=== PATIENT | female | born 1965 | race Hispanic/Latino ===

== ENCOUNTER 2018-01-11 07:49 | Outpatient (CLI) | payer OTHER ==
--- NOTE | 2018-01-11 11:50 | NM ---
NUCLEAR MEDICINE PARATHYROID SCAN: HISTORY: A 52-year-old female with hyperparathyroidism. TECHNIQUE: A nuclear parathyroid scan with SPECT imaging was performed. Immediate and 1-hour delay images were performed. The SPECT imaging was performed on the 1-hour delay. Two-hour delay images were also per formed. FINDINGS: There is immediate uptake of the radiopharmaceutical in the thyroid gland. This partially washes out at 1 hour and completely washes out at 2 hours. No significant asymmetry is seen to suggest a parat hyroid adenoma. No retention of the radiopharmaceutical is seen to suggest a parathyroid adenoma. IMPRESSION: No evidence of parathyroid adenoma. POS: AVE
== END 2018-01-11 07:50 | disposition home or self-care (01) ==
LOC: NM 07:49
PROVIDERS: ATTEND Family Medicine
DX: E21.3 Hyperparathyroidism, unspecified (principal)
CPT/HCPCS: 78072; A9500

== ENCOUNTER 2018-09-26 08:58 | Emergency (ER) | payer OTHER | END 2018-09-26 10:20 | disposition home or self-care (01) | LOC: ERS 08:58 | DX: H53.8 Other visual disturbances (principal); E03.9 Hypothyroidism, unspecified; Z79.899 Other long term (current) drug therapy | CPT/HCPCS: 93005 ==

== ENCOUNTER 2018-10-10 08:34 | Emergency (ER) | payer OTHER ==
[2018-10-10 08:50] LABS: #Eosinphils 0.1 thou/uL (0.0-0.7); #Lymphocytes 1.6 thou/uL (1.20-3.40); #Monocytes 0.6 thou/uL (0.11-0.59); #Neutrophils 6.2 thou/uL (1.40-6.50); %Basophils 0.3 % (0.0-1.0); %Eosinophils 0.7 % (0.0-10.0); %Lymphocytes 19.2 % (21.0-51.0); %Monocytes 6.7 % (0.0-10.0); %Neutrophils 73.1 % (42.0-75.0); Hemoglobin 14.3 g/dL (12.0-16.0); Mean Corpuscular Volume 94.1 fL (78.0-98.0); Mean Platelet Volume 8.2 fL (7.4-10.4); Platelet Count 182 thou/uL (130-400); RBC Distribution Width 11.6 % (11.5-14.5); Red Blood Cell (RBC) Count 4.62 mill/uL (4.20-5.40); White Blood Cell (WBC) Count 8.5 thou/uL (4.8-10.8)
[2018-10-10 09:00] LABS: PTT 30.1 SEC (22.9-36.1); Prothrombin Time 13.2 SEC (12.0-14.7)
[2018-10-10 09:06] LABS: ALT (SGPT) 16 U/L (8-55); AST (SGOT) 18 U/L (5-34); Albumin 4.1 g/dL (3.5-5.0); Alkaline Phosphatase 68 U/L (40-150); Anion Gap 15 mmol/L (10-20); BUN (Urea Nitrogen) 16 mg/dL (7.0-18.7); Bilirubin, Total 0.8 mg/dL (0.2-1.2); CK (CPK) 75 U/L (29-168); Calc. Creatinine Clearance 0 mL/min (70-130); Calcium 9.5 mg/dL (7.8-10.44); Carbon Dioxide 20 mmol/L (22-29); Chloride 107 mmol/L (98-107); Estimated GFR-MDRD 74; Glucose 112 mg/dL (70-105); Potassium 3.9 mmol/L (3.5-5.1); Protein, Total 7.1 g/dL (6.0-8.3); Sodium 138 mmol/L (136-145)
[2018-10-10 09:24] LABS: Bilirubin Negative (Negative); Blood, Urine Negative (Negative); Clarity CLEAR (Clear); Glucose, Urine (Dipstick) Negative (Negative); Leukocyte Negative (Negative); Nitrite Negative (Negative); Protein, Urine (Dipstick) Negative (Neg-Trace); Specific Gravity, Urine 1.005 (1.002-1.036); Urobilinogen 0.2 mg/dL (0.2-1.0); pH, Urine 7.5 (5.0-9.0)
--- NOTE | 2018-10-10 09:42 | CT ---
HEAD CT WITHOUT CONTRAST: DATE: 10/10/2018. COMPARISON: None. HISTORY: Right-sided numbness, stroke alert. TECHNIQUE: Axial CT imaging at 5 mm intervals from vertex through skull base without contrast. FINDINGS: The imaged paranasal sinuses and mastoid air cells are well aerated with no displaced calvarial fract ure, intracranial hemorrhage, midline shift, or mass effect seen. IMPRESSION: No acute findings. Results called to Dr. Stokes at 8:45 a.m. 10/10/2018. CODE CR POS: AVE
== END 2018-10-10 10:37 | disposition home or self-care (01) ==
LOC: ERS 08:34
DX: G45.9 Transient cerebral ischemic attack, unspecified (principal); E03.9 Hypothyroidism, unspecified; Z79.899 Other long term (current) drug therapy
CPT/HCPCS: 36416; 70450; 80053; 81003; 82550; 84484; 85025; 85610; 85730; 93005

== ENCOUNTER 2019-03-22 08:59 | Outpatient (CLI) | payer OTHER ==
--- NOTE | 2019-03-22 09:30 | RAD ---
XR Lumbar Spine Bending Min 4V HISTORY: Back pain. Spondylolisthesis. COMPARISON: None. FINDINGS: The vertebral bodies are normal in height disc spaces appear fairly well-preserved. There i s approximately 6 to 7 mm of spondylolisthesis of L4 on L5. This does not appear to change significantly between the flexion and extension views. Degenerative facet changes are present. IMPRESSION: Minimal spondylolisthesis of L4 on L5.
== END 2019-03-22 09:00 | disposition home or self-care (01) ==
LOC: RAD 08:59
PROVIDERS: ATTEND Nurse Practitioner Family
DX: M43.16 Spondylolisthesis, lumbar region (principal)
CPT/HCPCS: 72120

== ENCOUNTER 2023-10-23 03:51 | Emergency (ER) | payer OTHER ==
[2023-10-23 05:15] LABS: #Eosinphils 0.1 thou/uL (0.0-0.7); #Monocytes 0.3 thou/uL (0.11-0.59); #Neutrophils 2.6 thou/uL (1.40-6.50); %Basophils 0.9 % (0.0-1.0); %Eosinophils 2.9 % (0.0-10.0); %Lymphocytes 29.9 % (21.0-51.0); %Monocytes 7.4 % (0.0-10.0); %Neutrophils 58.7 % (42.0-75.0); Hematocrit 39.9 % (36.0-47.0); Hemoglobin 12.9 g/dL (12.0-16.0); Mean Corpuscular HGB CONC 32.3 g/dL (32.0-36.0); Mean Corpuscular Hemoglobin 30.9 pg (27.0-31.0); Mean Corpuscular Volume 95.5 fl (78.0-98.0); Mean Platelet Volume 10.6 fL (7.4-10.4); Platelet Count 176 10x3/uL (130-400); RBC Distribution Width 12.8 % (11.5-14.5); Red Blood Cell (RBC) Count 4.18 mill/uL (4.20-5.40); White Blood Cell (WBC) Count 4.5 10x3/uL (4.8-10.8)
[2023-10-23 05:40] LABS: ALT (SGPT) 13 U/L (8-55); AST (SGOT) 17 U/L (5-34); Albumin 3.9 g/dL (3.5-5.0); Alkaline Phosphatase 92 U/L (40-110); Anion Gap 10 mmol/L (10-20); BUN (Urea Nitrogen) 13 mg/dL (9.8-20.1); Bilirubin, Total 0.7 mg/dL (0.2-1.2); Calc. Creatinine Clearance 0 mL/min (70-130); Calcium 9.1 mg/dL (7.8-10.44); Carbon Dioxide 25 mmol/L (22-29); Chloride 110 mmol/L (98-107); Estimated GFR 87; Globulin 3.1 g/dL (2.4-3.5); Glucose 102 mg/dL (70-105); Sodium 141 mmol/L (136-145)
== END 2023-10-23 06:59 | disposition home or self-care (01) ==
LOC: ERS 03:51
DX: R51.9 Headache, unspecified (principal); E03.9 Hypothyroidism, unspecified; Z79.899 Other long term (current) drug therapy
CPT/HCPCS: 36415; 80053; 83735; 84443; 85025; 99284

== ENCOUNTER 2024-11-22 11:24 | Outpatient (CLI) | payer OTHER | END 2024-11-22 11:25 | disposition home or self-care (01) | LOC: BICRAD 11:24 | PROVIDERS: ATTEND Family Medicine | DX: M25.552 Pain in left hip (principal); M43.16 Spondylolisthesis, lumbar region; M16.0 Bilateral primary osteoarthritis of hip; M25.752 Osteophyte, left hip; M25.751 Osteophyte, right hip; M25.852 Other specified joint disorders, left hip; M43.17 Spondylolisthesis, lumbosacral region; M25.78 Osteophyte, vertebrae; M51.34 Other intervertebral disc degeneration, thoracic region; M51.35 Other intervertebral disc degeneration, thoracolumbar region | CPT/HCPCS: 72120 ==